=== PATIENT | female | born 1945 | race Caucasian/White ===

== ENCOUNTER → 2016-12-27 | Outpatient (CLI) | payer OTHER ==
[~2016-12-27] MED LIST: AMLO-110 PO; BIOTCAP2 PO; BNV150 PO; BUPRTAB51 PO; CALC600T9 PO; CMD25 PO; LEVO88TA3 PO; LISI-461 PO; LSX20 PO; METO-551 PO; METO50TA7 PO; MULT-580 PO; POTA10CA28 PO; RANI300T2 PO; SIMV40TA2 PO; WARF2.5T8 PO; ZONI100C39 PO
--- NOTE | 2016-12-28 13:54 | MAMMOGRAPHY REPORT ---
BILATERAL DIGITAL SCREENING MAMMOGRAM WITH CAD: 12/27/2016 CLINICAL HISTORY: Routine screening. Patient has no complaints. TECHNIQUE: Current study was also evaluated with a Computer Aided Detection (CAD) system. Bilateral CC and MLO views were obtained. COMPARISON: Comparison is made to exams dated: 12/26/2015 mammogram, 12/22/2014 mammogram, 12/16/2013 jen mogram, 12/10/2012 mammogram, 12/06/2011 mammogram, and 11/01/2010 mammogram - [facility]. BREAST COMPOSITION: The tissue of both breasts is almost entirely fatty. FINDINGS: No suspicious masses, calcifications, or areas of architectural distortion are noted in ei ther breast. There has been no significant interval change compared to prior exams. Scattered bilater al benign-appearing calcifications are not significantly changed. IMPRESSION: ACR BI-RADS CATEGORY 2: BENIGN There is no mammographic evidence of malignancy. A 1 year screening mammogram is recommended. The pa tient will receive written notification of the results. Approximately 10% of breast cancers are not detected with mammography. A negative mammographic report should not delay biopsy if a clinically suggestive mass is present. Aranza Deleon M.D. ah/:12/28/2016 09:18:57 [employer] Cable [employer]ator: Janine CARDOSO)(Danish), [facility] letter sent: Normal 1/2 BI-RADS Code: ACR BI-RADS Category 2: Benign
== END | disposition home or self-care (01) ==
LOC: C.MAMM 11:42
PROVIDERS: ATTEND Internal Medicine
DX: Z12.31 Encounter for screening mammogram for malignant neoplasm of breast (principal); I48.91 Unspecified atrial fibrillation

== ENCOUNTER → 2017-02-18 | Day surgery (SDC) | payer OTHER ==
[2017-02-14 08:43] VITALS: BMI 40.0
[~2017-02-18] VITALS: Ht 165.1 cm; Wt 110.0 kg
[~2017-02-18] MED LIST changes: -AMLO-110 PO; -BNV150 PO; -BUPRTAB51 PO; +LIDOCAINE HCL 2% 2 ML VIAL (20MG/ML) ONE; -LISI-461 PO; -METO50TA7 PO; +PROPOFOL IV EMULSION 10 MG/ML 20 ML VIAL IV ONE; -ZONI100C39 PO
[2017-02-18 14:42] VITALS: Ht 165.1 cm; Wt 110.0 kg
[2017-02-18 14:58] LABS: INR 3.1 (0.9-1.1); PROTHROMBIN TIME (PATIENT) 34.3 SECONDS (9.0-12.0)
--- NOTE | 2017-02-18 15:06 | Endo History and Physical ---
History & Physical Date of Service: Feb 18, 2017. Chief Complaint: screening Referring Physician: Dr. Matias History of Present Illness For colonoscopy Past Surgical History Hx Cardiac Surgery: No Hx Internal Defibrillator: No Hx Pacemaker: No Hx Abdominal Surgery: Yes (D&C) Hx of Implantable Prosthesis: No Hx Post-Op Nausea and Vomiting: No Hx Cancer Surgery: No Hx Thoracic Surgery: No Hx Orthopedic: No Hx Urinary Tract Surgery: No Family History None Social History Smoking Status: Former Smoker Hx Substance Use: No Hx Alcohol Use: No Allergies Coded Allergies: NO KNOWN DRUG ALLERGIES (Verified Allergy, Unknown, ., 02/18/17) Uncoded Allergies: BANANAS (Allergy, Unknown, GI UPSET, 02/14/17) Current Medications Reported Home Medications Medications Dose Route/Sig Max Daily Dose Days Date Category Dose Instructions Biotin 5000 (Biotin) 5 Mg Cap 10 Mg PO QAM 02/14/17 Reported Hair/Skin/Nails (Multiple Vitamins W/ Minerals) 1 Tab Tab 1 Tab PO QAM 02/14/17 Reported Calcium + D (Calcium Carbonate-Vitamin D) 1 Tab Tab 1 Tab PO QPM 02/14/17 Reported Zantac (Ranitidine HCl) 300 Mg Tab 300 Mg PO HS 02/14/17 Reported Jantoven (Warfarin Sodium) 2.5 Mg Tab 0.5 Tabs PO 5XWK 02/14/17 Reported SUN,TUES,WED,TH,SAT Levothyroxine Sodium 88 Mcg Tab 1 Tab PO QAM 02/14/17 Reported Lopressor (Metoprolol Tartrate) 50 Mg Tab 50 Mg PO BID 02/14/17 Reported Zocor (Simvastatin) 40 Mg Tab 40 Mg PO HS 01/12/08 Reported Micro-K Ext Rel (Potassium Chloride) 10 Meq Capcr 10 Meq PO QAM 01/12/08 Reported Coumadin * (Warfarin Sodium) 2.5 Mg Tab 2.5 Mg PO 2XWK 01/12/08 Reported MON,FRI Lasix * (Furosemide) 20 Mg Tab 20 Mg PO QAM 01/12/08 Reported Vital Signs Weight (Kilograms): 110.00 Height (Feet): 5 Height (Inches): 5 Date Time Temp Pulse Resp B/P (MAP) Pulse Ox O2 Delivery O2 Flow Rate FiO2 02/18/17 14:50 36.2 75 18 150/82 (104) 98 Room Air Physical Exam General Appearance: + obese, + pertinent finding (Ambulates with a cane) Respiratory/Chest: Respiratory effort: no dyspnea Cardiovascular: Heart Auscultation: RRR Abdomen: Bowel Sounds: normal Assessment and Plan For screening colonoscopy
--- NOTE | 2017-02-18 15:43 | Discharge Instructions ---
Endoscopy Patient Instructions Date / Procedure(s) Performed Feb 18, 2017. Colonoscopy Allergy Information Coded Allergies: NO KNOWN DRUG ALLERGIES (Verified Allergy, Unknown, ., 02/18/17) Uncoded Allergies: BANANAS (Allergy, Unknown, GI UPSET, 02/14/17) Discharge Date / Findings Feb 18, 2017. Diverticulosis Medication Instructions Stopped Medication(s): coumadin half dose taken last night Restart Stopped Medication(s): resume meds Reported Home Medications Medications Dose Route/Sig Max Daily Dose Days Date Category Dose Instructions Biotin 5000 (Biotin) 5 Mg Cap 10 Mg PO QAM 02/14/17 Reported Hair/Skin/Nails (Multiple Vitamins W/ Minerals) 1 Tab Tab 1 Tab PO QAM 02/14/17 Reported Calcium + D (Calcium Carbonate-Vitamin D) 1 Tab Tab 1 Tab PO QPM 02/14/17 Reported Zantac (Ranitidine HCl) 300 Mg Tab 300 Mg PO HS 02/14/17 Reported Jantoven (Warfarin Sodium) 2.5 Mg Tab 0.5 Tabs PO 5XWK 02/14/17 Reported SUN,TUES,WED,THURS,SAT Levothyroxine Sodium 88 Mcg Tab 1 Tab PO QAM 02/14/17 Reported Lopressor (Metoprolol Tartrate) 50 Mg Tab 50 Mg PO BID 02/14/17 Reported Zocor (Simvastatin) 40 Mg Tab 40 Mg PO HS 01/12/08 Reported Micro-K Ext Rel (Potassium Chloride) 10 Meq Capcr 10 Meq PO QAM 01/12/08 Reported Coumadin * (Warfarin Sodium) 2.5 Mg Tab 2.5 Mg PO 2XWK 01/12/08 Reported MON,FRI Lasix * (Furosemide) 20 Mg Tab 20 Mg PO QAM 01/12/08 Reported Provider Instructions Activity Restrictions - No exercising or heavy lifting for 24 hours. - Do not drink alcohol the day of the procedure. - Do not drive a car or operate machinery until the day after the procedure. - Do not make any important decisions or sign important papers in 24 hours after the procedure. Following Day: - Return to full activity which may include returning to work/school. Diet Start your diet with liquids and light foods (jello, soup, juice, toast). Then eat your usual diet if not nauseated. Treatment For Common After Affects For mild abdominal pain, bloating, or excessive gas: - Rest - Eat lightly - Lie on right side Follow-Up Information Follow-up with Dr. Matias as scheduled Anesthesia Information What You Should Know You have had a procedure that required some medicine to reduce anxiety and discomfort. This treatment is called moderate sedation. After receiving the treatment, you may be sleepy, but you will be able to breathe on your own. The effects of the treatment may last for several hours. Follow these instructions along with Activity/Diet recommendations noted above: * Do NOT do anything where dizziness or clumsiness would be dangerous. * Rest quietly at home today, then you can be up and about tomorrow. * Have a responsible person stay with you the rest of today. * You may have had an I.V. today. If so, you may take the dressing off later today. Recommendations Call your doctor if: * Trouble breathing * Continuous vomiting for more than 24 hours * Temperature above 101 degrees * Severe abdominal pain or bloating * Pain not relieved by pain medicine ordered * There is increased drainage or redness from any incision * A large amount of rectal bleeding greater than 2-3 tablespoons. (If you had a polyp/s removed or have hemorrhoids, a small amount of blood - from the rectum is to be expected.) * You have any unanswered questions or concerns. IN THE EVENT OF A SERIOUS EMERGENCY, GO TO THE NEAREST EMERGENCY ROOM Your discharge instructions were prepared by provider Fredi White. Patient Instructions Signature Page Lillian Love Patient (or Guardian) Signature/Date: I have read and understand the instructions given to me by my caregivers. Caregiver/RN/Doctor Signature/Date: The above-named patient and/or guardian has received patient instructions on this date. + Original Patient Signature Page (only) stays with chart. Please make copy for patient.
--- NOTE | 2017-02-18 15:45 | GI REPORT ---
Procedure Date: 02/18/2017 3:19 PM Procedure: Colonoscopy Indications: Screening for colorectal malignant neoplasm Medicines: Propofol total dose 250 mg IV, Lidocaine 40 mg IV Complications: No immediate complications. Estimated Blood Loss: Estimated blood loss: none. Procedure: Pre-Anesthesia Assessment: - Prior to the procedure, a History and Physical was performed, and patient medications, allergies and sensitivities were reviewed. The patient's tolerance of previous anesthesia was reviewed. - The risks and benefits of the procedure and the sedation options and risks were discussed with the patient. All questions were answered and informed consent was obtained. After I obtained informed consent, the scope was passed under direct vision. Throughout the procedure, the patient's blood pressure, pulse, and oxygen saturations were monitored continuously. The On-site loaner was introduced through the anus and advanced to the cecum, identified by appendiceal orifice and ileocecal valve. The colonoscopy was performed without difficulty. The patient tolerated the procedure well. The quality of the bowel preparation was good. Findings: A few diverticula were found in the sigmoid colon. Impression: - Diverticulosis in the sigmoid colon. - No specimens collected. Recommendation: - Discharge patient to home (ambulatory). - Continue present medications. - Repeat colonoscopy in 10 years for surveillance. - Return to primary care physician PRN. Fredi White M.D. Fredi White MD 02/18/2017 3:45:15 PM This report has been signed electronically. Note Initiated On: 02/18/2017 3:19 PM I attest to the content of the Intraoperative Record and orders documented therein, exceptions below
[2017-02-18 16:25] VITALS: BP 159/87; PULSE 64; O2SAT 99
--- NOTE | 2017-02-18 16:41 | Anesthesiology Progress Note ---
Anesthesia Post Op Note Date & Time Feb 18, 2017 at 16:41 Vital Signs Pain Intensity: 0 Vital Signs Past 12 Hours Date Time Temp Pulse Resp B/P (MAP) Pulse Ox O2 Delivery O2 Flow Rate FiO2 02/18/17 16:25 64 20 159/87 (111) 99 Room Air 02/18/17 16:07 68 20 134/68 (90) 99 Room Air 02/18/17 15:50 75 20 117/82 (94) 98 Room Air 02/18/17 14:50 36.2 75 18 150/82 (104) 98 Room Air Notes Mental Status: alert / awake / arousable, participated in evaluation Pt Amnestic to Procedure: Yes Nausea / Vomiting: adequately controlled Pain: adequately controlled Airway Patency, RR, SpO2: stable & adequate BP & HR: stable & adequate Hydration State: stable & adequate Anesthetic Complications: no major complications apparent
== END | disposition home or self-care (01) ==
LOC: C.GI 13:48
PROVIDERS: ATTEND Internal Medicine Gastroenterology
DX: Z12.11 Encounter for screening for malignant neoplasm of colon (principal); K57.30 Diverticulosis of large intestine without perforation or abscess without bleeding; I48.91 Unspecified atrial fibrillation; E78.5 Hyperlipidemia, unspecified; M19.90 Unspecified osteoarthritis, unspecified site; E03.9 Hypothyroidism, unspecified; Z87.891 Personal history of nicotine dependence; Z79.01 Long term (current) use of anticoagulants; Z98.41 Cataract extraction status, right eye; Z98.42 Cataract extraction status, left eye; Z90.89 Acquired absence of other organs; Z86.73 Personal history of transient ischemic attack (TIA), and cerebral infarction without residual deficits

== ENCOUNTER → 2017-05-16 | Outpatient (CLI) | payer OTHER ==
[~2017-05-16] MED LIST changes: -LIDOCAINE HCL 2% 2 ML VIAL (20MG/ML) ONE; -PROPOFOL IV EMULSION 10 MG/ML 20 ML VIAL IV ONE
[2017-05-16 09:37] LABS: BASO % 0.7 %; BASO ABS # 0.05 K/uL (0-0.2); COMPLETE YES; EOS % 4.4 %; HEMATOCRIT 41.8 % (37-47); IG% 0.1 %; LYMPH % 34.8 %; LYMPH ABS # 2.36 K/uL (1.2-3.4); MEAN CORPUSCULAR HEMOGLOBIN 30.5 pg (25-34); MEAN CORPUSCULAR HGB CONC 34.7 g/dl (32-36); MONO % 13.7 %; NEUT % 46.3 %; PLATELET COUNT 178 K/uL (130-400); RED BLOOD COUNT 4.75 M/uL (4.2-5.4); WHITE BLOOD COUNT 6.79 K/uL (4.8-10.8)
[2017-05-16 09:51] LABS: INR 2.5 (0.9-1.1); PROTHROMBIN TIME (PATIENT) 28.1 SECONDS (9.0-12.0)
[2017-05-16 10:03] LABS: ALT/SGPT 29 U/L (12-78); AST/SGOT 24 U/L (15-37); BLOOD UREA NITROGEN 20 mg/dl (7-18); BUN/CREATININE RATIO 21.2 (10-20); CARBON DIOXIDE 28 mmol/L (21-32); CHLORIDE 107 mmol/L (98-107); CREATININE 0.93 mg/dl (0.60-1.20); GLUCOSE 103 mg/dl (70-99); POTASSIUM 4.2 mmol/L (3.5-5.1); SODIUM 140 mmol/L (136-145)
[2017-05-16 10:14] LABS: ALB/GLOB RATIO 0.8 (0.9-2); ALKALINE PHOSPHATASE 54 U/L (45-117); CHOLESTEROL 170 mg/dl (0-200); CHOLESTEROL/HDL RATIO 3.3; HDL CHOLESTEROL 51 mg/dl; LDL CHOLESTEROL CALCULATED 90 mg/dl; TRIGLYCERIDES 144 mg/dl (0-150); VERY LOW DENSITY LIPOPROT CALC 29 mg/dl
== END | disposition home or self-care (01) ==
LOC: C.LAB1850 08:32
PROVIDERS: ATTEND Internal Medicine
DX: I48.91 Unspecified atrial fibrillation (principal); I10 Essential (primary) hypertension; E78.5 Hyperlipidemia, unspecified; M81.0 Age-related osteoporosis without current pathological fracture; E03.9 Hypothyroidism, unspecified

== ENCOUNTER → 2018-03-04 | Outpatient (CLI) | payer OTHER | END | disposition home or self-care (01) | LOC: C.PAPS 16:23 | PROVIDERS: ATTEND Obstetrics & Gynecology | DX: Z01.419 Encounter for gynecological examination (general) (routine) without abnormal findings (principal) ==